=== PATIENT | male | born 1960 | race African-American/Black ===

== ENCOUNTER 2018-11-06 15:02 | Emergency (ER) | payer OTHER ==
[~2018-11-06] VITALS: Ht 170.2 cm; Wt 79.4 kg
[2018-11-06 15:02] VITALS: BP 142/72
[2018-11-06] MEDS ORDERED: IBUPROFEN 600 MG TABLET PO ONE ×2 (15:16→15:30)
== END 2018-11-06 15:35 | disposition home or self-care (01) ==
LOC: ER 15:10
DX: R25.2 Cramp and spasm (principal)
CPT/HCPCS: 99283; A4606